=== PATIENT | female | born 1945 | race Caucasian/White ===

== ENCOUNTER 2017-09-28 01:19 | Inpatient (IN) | payer MEDICARE, BC, OTHER ==
[~2017-09-28] VITALS: Ht 154.9 cm; Wt 89.4 kg
[2017-09-28] MEDS ORDERED: HYDR25TA PO (04:57)
[2017-09-28] MEDS ORDERED: FLUT100B IH (04:57)
[2017-09-28] MEDS ORDERED: ASPI81TA59 PO (04:57)
[2017-09-28] MEDS ORDERED: INSU100I13 SQ (04:57)
[2017-09-28] MEDS ORDERED: ISOS30TA19 PO (04:57)
[2017-09-28] MEDS ORDERED: GABA-585 PO (04:57)
[2017-09-28] MEDS ORDERED: FLUT9.9S NS (04:57)
[2017-09-28] MEDS ORDERED: PROVENTIL HFA6.7 GM IH (04:57)
[2017-09-28] MEDS ORDERED: LEVO150T PO (04:57)
[2017-09-28] MEDS ORDERED: INSU100I17 SQ (04:57)
[2017-09-28] MEDS ORDERED: CARV12.5 PO (04:57)
[2017-09-28] MEDS ORDERED: CARB1TAB2 PO (04:57)
[2017-09-28] MEDS ORDERED: ATOR20TA58 PO (04:57)
[2017-09-28] MEDS ORDERED: POLY255P PO (04:58)
[2017-09-28] MEDS ORDERED: RANI150T2 PO (04:58)
[2017-09-28] MEDS ORDERED: OXYC-323 PO (04:58)
[2017-09-28] MEDS ORDERED: ROPI1TAB PO (04:58)
[2017-09-28] MEDS ORDERED: WARF-78 PO (04:58)
[2017-09-28] MEDS ORDERED: ONDA4TAB10 SL (04:58)
[2017-09-28] MEDS ORDERED: NITR0.4T22 SL (04:58)
[2017-09-28] MEDS ORDERED: RANO10002 PO (04:58)
[2017-09-28] MEDS ORDERED: PANT20TA2 PO (04:58)
[2017-09-28] MEDS ORDERED: POLYETHYLENE GLYCOL 3350 17 GM PACKET. PO PRN (06:30)
[2017-09-28] MEDS ORDERED: NITROGLYCERIN SUBLINGUAL 0.4 MG BOTTLE OF 25. SL PRN (06:30)
[2017-09-28] MEDS ORDERED: ONDANSETRON ODT 4 MG TAB.RAPDIS. PO PRN (06:30)
[2017-09-28] MEDS ORDERED: NON FORMULARY ITEM (Albuterol Sulfate (Proventil Hfa Inhaler) 1 PUFF) IH PRN (06:30)
[2017-09-28] MEDS ORDERED: oxyCODONE/APAP 5/325 1 TAB TABLET PO PRN (06:30)
[2017-09-28] MEDS ORDERED: hydrOXYzine PAMOATE 25 MG CAPSULE PO PRN (06:30)
[2017-09-28] MEDS: ONDANSETRON PF 4 MG/2 ML VIAL. IV PRN (06:38)
[2017-09-28] MEDS: PANTOPRAZOLE 40 MG TABLET.DR. PO SCH ×2 (06:38→16:34)
[2017-09-28 07:00] VITALS: BP 109/73
[2017-09-28] MEDS ORDERED: ALBUTEROL SULFATE 2.5 MG/3 ML NEBU. NEB PRN (07:00)
[2017-09-28] MEDS: LEVOTHYROXINE 150 MCG TABLET PO SCH (07:17)
[2017-09-28] MEDS: CARBIDOPA/LEVODOPA 25/100MG TABLET PO SCH ×3 (08:23→20:29)
[2017-09-28] MEDS: ASPIRIN CHEWABLE 81 MG TABLET. PO SCH (08:23)
[2017-09-28] MEDS: rOPINIRole 1 MG TABLET. PO SCH ×3 (08:23→20:30)
[2017-09-28] MEDS: RANOLAZINE 500 MG TAB.ER.12H PO SCH ×2 (08:23→20:30)
[2017-09-28] MEDS: GABAPENTIN 100 MG CAPSULE. PO SCH (08:23)
[2017-09-28] MEDS: ISOSORBIDE DINITRATE 10 MG TABLET. PO SCH ×2 (08:24→20:30)
[2017-09-28] MEDS: FLUTICASONE 50MCG/NASAL SPRAY 16GM BOTTLE. NS SCH (08:25)
[2017-09-28] MEDS: CARVEDILOL 12.5 MG TABLET. PO SCH ×2 (08:25→16:35)
[2017-09-28] MEDS ORDERED: ACETAMINOPHEN 500 MG TABLET PO PRN (08:30)
[2017-09-28] MEDS: INSULIN LISPRO 300 UNITS/3 ML INSULN.PEN. SQ SCH ×3 (08:30→16:30)
[2017-09-28] MEDS ORDERED: NON FORMULARY ITEM (Warfarin Sodium (Coumadin) 1 TAB) PO SCH (09:00)
[2017-09-28] MEDS ORDERED: C.DIFF MED SCREEN BY RX. MC ONE (09:00)
[2017-09-28] MEDS ORDERED: FLUTICASONE FUROATE 100 MCG IH SCH (09:00)
--- NOTE | 2017-09-28 09:43 | PDOC1 ---
History and Physical Date of Admission Date of Admission DATE: 09/28/17 TIME: 09:36 Identification/Chief Complaint Chief Complaint Shakiness and weakness, rather acute, brought in by concern sister Source Source: Caregiver, Chart review, Patient History of Present Illness History of Present Illness 72-year-old -[place] female, has been on dialysis for 1 year since July 2016, has an AV fistula placed September 14, 2017 on the right arm, she actually felt well 1 day prior to admission actually went shopping with her sister. When she went home and slept, tried to wake up and she could not suddenly get out of bed, shaking weak, sister needed to assist, sister got concerned and brought to the ER. Pt denies any CP, Diarrhea, abdominal pain, or pain whatsoever. She is just visiting here, she lives in [facility] and her dialysis days are usually Wednesday, but when she is here visiting her sister she gets dialyzed Wednesday at [facility], labs remarkable for a creatinine of 9.7, anion gap increase at 15 with normal bicarbonate at 22, hyperkalemia at 5.9 with no EKG changes, slight hyponatremia sodium 133. No white count, hemoglobin 10 per chest x-ray just shows PA prominence otherwise the rest of the labs okay. Patient feeling a bit better, I could not appreciate any shakiness, eating her breakfast. But has not ambulated yet. Admitted here transferred for dialysis, I' ll ask PT OT to see, I'm still waiting for home meds that otherwise can be resumed. Past medical history multiple includes cancer, COPD, DM, GERD, NE, CABG, CHF and asthma Past surgical history cardiac stents, CABG Allergies to bupropion and teriparatide Family History Family History: High Cholestrol, Hypertension Social History Smoke: No ALCOHOL: none Drugs: None Current Medications Current Medications Current Medications Pharmacy Consult (C.diff Med Screen By Rx) 1 each 1X ONCE MC ; Start 09/28/17 at 09:00; Stop 09/28/17 at 09:01; Status DC Ondansetron HCl (Zofran) 4 mg PRN Q6HRS PRN IV NAUSEA/VOMITING Last administered on 09/28/17at 06:38; Start 09/28/17 at 06:30 Aspirin (Children'S Aspirin) 81 mg DAILY PO Last administered on 09/28/17at 08: 23; Start 09/28/17 at 09:00 Atorvastatin Calcium (Lipitor) 20 mg HS PO ; Start 09/28/17 at 21:00 Carbidopa/Levodopa (Sinemet 25/100) 1 tab TID PO Last administered on at 08:23; Start 09/28/17 at 09:00 Carvedilol (Coreg) 12.5 mg BIDWMEALS PO Last administered on 09/28/17at 08:25; Start 09/28/17 at 08:00 Gabapentin (Neurontin) 100 mg DAILY PO Last administered on 09/28/17at 08:23; Start 09/28/17 at 09:00 Insulin Glargine (Lantus) 40 units QHS SQ ; Start 09/28/17 at 21:00 Nitroglycerin (Nitrostat) 0.4 mg PRN Q5MIN PRN SL CHEST PAIN; Start 09/28/17 at 06:30 Ondansetron HCl (Zofran Odt) 4 mg PRN Q8HRS PRN PO NAUSEA; Start 09/28/17 at 06 :30 Oxycodone/ Acetaminophen (Percocet 5/325) 1 tab PRN Q6HRS PRN PO PAIN; Start at 06:30 Polyethylene Glycol (miraLAX PACKET) 17 gm PRN DAILY PRN PO CONSTIPATION; Start 09/28/17 at 06:30 Non-Formulary Medication (Albuterol Sulfate (Proventil Hfa Inhaler)) 1 puff PRN Q4HRS PRN IH FOR ASTHMA; Start 09/28/17 at 06:30; Status UNV Non-Formulary Medication (Fluticasone Furoate (Arnuity Ellipta)) 100 mcg DAILY IH ; Start 09/28/17 at 09:00; Stop 09/28/17 at 09:00; Status DC Fluticasone Propionate (Flonase) 1 spray DAILY NS Last administered on at 08:25; Start 09/28/17 at 09:00 Hydroxyzine Pamoate (Vistaril) 25 mg PRN TID PRN PO ITCHING; Start 09/28/17 at 06:30 Insulin Human Lispro (HumaLOG) 7 units TIDAC SQ Last administered on 09/28/17at 08:30; Start 09/28/17 at 07:30 Isosorbide Dinitrate (Isordil) 30 mg BID PO Last administered on 09/28/17at 08: 24; Start 09/28/17 at 09:00 Levothyroxine Sodium (Synthroid) 150 mcg DAILY07 PO Last administered on at 07:17; Start 09/28/17 at 07:00 Pantoprazole Sodium (Protonix) 40 mg BIDBFRMEAL PO Last administered on at 06:38; Start 09/28/17 at 07:30 Ranolazine (Ranexa) 1,000 mg BID PO Last administered on 09/28/17 08:23; Start 09/28/17 at 09:00 Ropinirole HCl (Requip) 1 mg TID PO Last administered on 09/28/17at 08:23; Start 09/28/17 at 09:00 Non-Formulary Medication (Warfarin Sodium (Coumadin)) 1 tab DAILY PO ; Start at 09:00; Stop 09/28/17 at 09:00; Status DC Albuterol Sulfate (Ventolin Neb Soln) 2.5 mg PRN Q4HRS PRN NEB SHORTNESS OF BREATH; Start 09/28/17 at 07:00 Budesonide (Pulmicort) 0.5 mg RTBID NEB ; Start 09/28/17 at 08:00 Warfarin Sodium (Coumadin Per Pharmacy) 1 each PRN DAILY PRN MC SEE COMMENTS; Start 09/28/17 at 07:15 Acetaminophen (Tylenol) 500 mg PRN Q6HRS PRN PO MILD PAIN / TEMP; Start at 08:30 Active Scripts Active Reported Coumadin (Warfarin Sodium) 5 Mg Tablet 1 Tab PO DAILY Requip (Ropinirole Hcl) 1 Mg Tablet 1 Mg PO TID Ranexa (Ranolazine) 1,000 Mg Tab.er.12h 1 Tab PO BID Ranitidine Hcl 150 Mg Tablet 150 Mg PO DAILY Polyethylene Glycol 3350 255 Gm Powder 17 Gm PO DAILY PRN Protonix (Pantoprazole Sodium) 20 Mg Tablet.dr 40 Mg PO BID Percocet 5-325 Mg Tablet (Oxycodone/Acetaminophen) 1 Each Tablet 1 Tab PO PRN Q6HRS PRN Zofran Odt (Ondansetron) 4 Mg Tab.rapdis 1 Tab SL Q8HRS NITROGLYCERIN SubLingual (Nitroglycerin) 0.4 Mg Tab.subl 0.4 Mg SL PRN Q5MIN PRN Synthroid (Levothyroxine Sodium) 150 Mcg Tablet 1 Tab PO DAILY Isosorbide Dinitrate 30 Mg Tablet 30 Mg PO BID Lantus Solostar (Insulin Glargine,Hum.rec.anlog) 100 Unit/1 Ml Insuln.pen 40 Unit SQ QHS Novolog Flexpen (Insulin Aspart) 100 Unit/1 Ml Insuln.pen 7 Unit SQ TIDAC Hydroxyzine Hcl 25 Mg Tablet 1 Tab PO TID PRN Gabapentin 100 Mg Capsule 100 Mg PO DAILY Flonase Allergy Relief (Fluticasone Propionate) 9.9 Ml Jackson.susp 1 Sprays NS DAILY Arnuity Ellipta (Fluticasone Furoate) 100 Mcg Blst.w.dev 100 Mcg IH DAILY Coreg (Carvedilol) 12.5 Mg Tablet 1 Tab PO BID Sinemet 25-100 Mg Tablet (Carbidopa/Levodopa) 1 Each Tablet 1 Tab PO TID Atorvastatin Calcium 20 Mg Tablet 1 Tab PO DAILY Children's Aspirin (Aspirin) 81 Mg Tab.chew 81 Mg PO DAILY Proventil Hfa Inhaler (Albuterol Sulfate) 6.7 Gm Hfa.aer.ad 1 Puff IH PRN Q4HRS PRN Allergies Allergies: Coded Allergies: bupropion (Verified Adverse Reaction, Severe, Nausea, 09/28/17) teriparatide (Verified Adverse Reaction, Severe, Nausea and Vomiting, 09/28) ROS Review of System as per history of present illness, the rest of 14 point systems reviewed negative Physical Exam General: Alert, Oriented X3, Cooperative, No acute distress HEENT: Atraumatic, PERRLA, EOMI Lungs: Clear to auscultation, Normal air movement Heart: S1S2, RRR, no thrills, no rubs, no gallops, no murmurs Cardiovascular: S1, S2 Breasts: Normal, Rt breast nml w/o mass, Lt breast nml w/o mass, Nipples normal Abdomen: Normal bowel sounds, Soft, No tenderness, No hepatosplenomegaly, No masses Extremities: No clubbing, No cyanosis, No edema, Normal pulses, No tenderness/ swelling Skin: No rashes, No breakdown, No significant lesion Neuro: Normal gait, Normal speech, Strength at 5/5 X4 ext, Normal tone, Sensation intact, Cranial nerves 3-12 NL, Reflexes 2+ Psych/Mental Status: Mental status NL, Mood NL Vitals Vitals Vital Signs Date Time Temp Pulse Resp B/P (MAP) Pulse Ox O2 Delivery O2 Flow Rate FiO2 09/28/17 08:25 69 109/73 09/28/17 07:00 97.0 20 100 Nasal Cannula 2.0 97.0 Labs Labs Laboratory Tests Test 09/28/17 03:19 09/28/17 07:38 Glucose (Fingerstick) 143 mg/dL (70-99) 160 mg/dL (70-99) Laboratory Tests Test 09/28/17 03:19 09/28/17 07:38 Glucose (Fingerstick) 143 mg/dL (70-99) 160 mg/dL (70-99) VTE Prophylaxis Ordered VTE Prophylaxis Devices: Yes VTE Pharmacological Prophylaxi: Yes Assessment/Plan Assessment/Plan ESRD on dialysis, usual days are Wednesday at home in [facility] But if she is visiting her sister here, she gets dialyzed at [place] Wednesday-last dialysis was Wednesday, 4 days ago hyperkalemia with no EKG changes Mild hyponatremia Elevated anion gap with normal bicarbonate Anemia of ESRD Hypertension, COPD, CVA, diabetes type 2, CHF, GERD, all chronic stable Plan: Admit, dialyzed today, renal consult, awaiting home meds, PT OT, supportive care Discussed with her Other questions I have attempted to answer for her HUNG YEBOAH MD Sep 28, 2017 09:43
[2017-09-28 10:08] LABS: BASO # 0.1 x10^3/uL (0.0-0.2); BASO % 1 % (0-3); EOS # 0.5 x10^3/uL (0.0-0.7); EOS % 6 % (0-3); HEMATOCRIT 29.4 % (36.0-47.0); HEMOGLOBIN 9.7 g/dL (12.0-15.5); LYMPH # 2.3 x10^3/uL (1.0-4.8); LYMPH % 25 % (24-48); MEAN CORPUSCULAR HEMOGLOBIN 31 pg (25-35); MEAN CORPUSCULAR HGB CONC 33 g/dL (31-37); MEAN CORPUSCULAR VOLUME 95 fL (79-100); MONO # 0.6 x10^3/uL (0.0-1.1); MONO % 7 % (0-9); NEUT # 5.5 x10^3uL (1.8-7.7); NEUT % 61 % (31-73); PLATELET COUNT 182 x10^3/uL (140-400); RED BLOOD COUNT 3.09 x10^6/uL (3.50-5.40); RED CELL DISTRIBUTION WIDTH 19.2 % (11.5-14.5)
[2017-09-28 10:27] LABS: CALCIUM 9.2 mg/dL (8.5-10.1); CREATININE 9.9 mg/dL (0.6-1.0); GFR 3.9
[2017-09-28 10:29] LABS: POTASSIUM 4.6 mmol/L (3.5-5.1)
[2017-09-28 10:39] LABS: PROTHROMBIN TIME PATIENT 43.3 SEC (11.7-14.0)
[2017-09-28] MEDS: BUDESONIDE 0.5 MG/2 ML NEBU. NEB SCH ×2 (11:16→19:01)
[2017-09-28 11:41] VITALS: BP 85/64
[2017-09-28] MEDS ORDERED: IV NORMAL SALINE 1000ML BAG 1,000 ML IV PRN ×2 (11:42)
[2017-09-28] MEDS ORDERED: DIALYSIS PATIENT. MC PRN ×2 (11:45)
--- NOTE | 2017-09-28 12:01 | PDOC2 ---
CONSULT Date of Consult Date of Consult DATE: 09/28/17 TIME: 11:54 Reason for Consult Reason for Consult: ESRD Referring Physician Referring Physician: POLY Identification/Chief Complaint Chief Complaint WEAKNESS Source Source: Chart review, Patient History of Present Illness Reason for Visit: THIS IS A 72 YR OLD ON HD FOR ABOUT A YEAR. ESRD DUE TO DM II AND HTN. HAS BEEN GETTING HER TX IN [facility] BUT RECENTLY MOVED TO [facility] WHERE SHE GETS HER TX ON TTS. SHE IS NOTED TO HAVE WEAKNESS AND CHILLS AND COULD HARDLY GET OUT OF BED AND THIS PRECIPITATED THE ADMISSION. NO OTHER HX. LABS ARE C/ W ESRD. SOME HYPOTENSION NOTED BUT ONLY ON COREG Past Medical History Cardiovascular: CHF, HTN GI: Constipation Heme/Onc: Anemia NOS Musculoskeletal: Weakness Rheumatologic: No pertinent hx Infectious disease: No pertinent hx ENT: No pertinent hx Renal/: Chronic renal failure Endocrine: Diabetes, Hyperparathyroidism Past Surgical History Past Surgical History RIGHT IJ TDC AND RIGHT ARM AVF Family History Family History: High Cholestrol, Hypertension Social History No ALCOHOL: none Drugs: None Current Medications Current Medications Current Medications Pharmacy Consult (C.diff Med Screen By Rx) 1 each 1X ONCE [facility] ; Start 09/28/17 at 09:00; Stop 09/28/17 at 09:01; Status DC Ondansetron HCl (Zofran) 4 mg PRN Q6HRS PRN IV NAUSEA/VOMITING Last administered on 09/28/17at 06:38; Start 09/28/17 at 06:30 Aspirin (Children'S Aspirin) 81 mg DAILY PO Last administered on 09/28/17at 08: 23; Start 09/28/17 at 09:00 Atorvastatin Calcium (Lipitor) 20 mg HS PO ; Start 09/28/17 at 21:00 Carbidopa/Levodopa (Sinemet 25/100) 1 tab TID PO Last administered on at 08:23; Start 09/28/17 at 09:00 Carvedilol (Coreg) 12.5 mg BIDWMEALS PO Last administered on 09/28/17at 08:25; Start 09/28/17 at 08:00 Gabapentin (Neurontin) 100 mg DAILY PO Last administered on 09/28/17at 08:23; Start 09/28/17 at 09:00 Insulin Glargine (Lantus) 40 units QHS SQ ; Start 09/28/17 at 21:00 Nitroglycerin (Nitrostat) 0.4 mg PRN Q5MIN PRN SL CHEST PAIN; Start 09/28/17 at 06:30 Ondansetron HCl (Zofran Odt) 4 mg PRN Q8HRS PRN PO NAUSEA; Start 09/28/17 at 06 :30 Oxycodone/ Acetaminophen (Percocet 5/325) 1 tab PRN Q6HRS PRN PO PAIN; Start at 06:30 Polyethylene Glycol (miraLAX PACKET) 17 gm PRN DAILY PRN PO CONSTIPATION; Start 09/28/17 at 06:30 Non-Formulary Medication (Albuterol Sulfate (Proventil Hfa Inhaler)) 1 puff PRN Q4HRS PRN IH FOR ASTHMA; Start 09/28/17 at 06:30; Status UNV Non-Formulary Medication (Fluticasone Furoate (Arnuity Ellipta)) 100 mcg DAILY IH ; Start 09/28/17 at 09:00; Stop 09/28/17 at 09:00; Status DC Fluticasone Propionate (Flonase) 1 spray DAILY NS Last administered on at 08:25; Start 09/28/17 at 09:00 Hydroxyzine Pamoate (Vistaril) 25 mg PRN TID PRN PO ITCHING; Start 09/28/17 at 06:30 Insulin Human Lispro (HumaLOG) 7 units TIDAC SQ Last administered on 09/28/17at 08:30; Start 09/28/17 at 07:30 Isosorbide Dinitrate (Isordil) 30 mg BID PO Last administered on 09/28/17at 08: 24; Start 09/28/17 at 09:00 Levothyroxine Sodium (Synthroid) 150 mcg DAILY07 PO Last administered on at 07:17; Start 09/28/17 at 07:00 Pantoprazole Sodium (Protonix) 40 mg BIDBFRMEAL PO Last administered on at 06:38; Start 09/28/17 at 07:30 Ranolazine (Ranexa) 1,000 mg BID PO Last administered on 09/28/17at 08:23; Start 09/28/17 at 09:00 Ropinirole HCl (Requip) 1 mg TID PO Last administered on 09/28/17at 08:23; Start 09/28/17 at 09:00 Non-Formulary Medication (Warfarin Sodium (Coumadin)) 1 tab DAILY PO ; Start at 09:00; Stop 09/28/17 at 09:00; Status DC Albuterol Sulfate (Ventolin Neb Soln) 2.5 mg PRN Q4HRS PRN NEB SHORTNESS OF BREATH; Start 09/28/17 at 07:00 Budesonide (Pulmicort) 0.5 mg RTBID NEB Last administered on 09/28/17at 11:16; Start 09/28/17 at 08:00 Warfarin Sodium (Coumadin Per Pharmacy) 1 each PRN DAILY PRN MC SEE COMMENTS; Start 09/28/17 at 07:15 Acetaminophen (Tylenol) 500 mg PRN Q6HRS PRN PO MILD PAIN / TEMP; Start at 08:30 Sodium Chloride 1,000 ml @ 1,000 mls/hr Q1H PRN IV hypotension; Start 09/28/17 at 11:42; Stop 09/28/17 at 17:41 Sodium Chloride 1,000 ml @ 400 mls/hr Q2H30M PRN IV PATENCY; Start 09/28/17 at 11:42; Stop 09/28/17 at 23:41 Info (PHARMACY MONITORING -- do not chart) 1 each PRN DAILY PRN MC SEE COMMENTS ; Start 09/28/17 at 11:45; Status UNV Info (PHARMACY MONITORING -- do not chart) 1 each PRN DAILY PRN MC SEE COMMENTS ; Start 09/28/17 at 11:45 Active Scripts Active Reported Coumadin (Warfarin Sodium) 5 Mg Tablet 1 Tab PO DAILY Requip (Ropinirole Hcl) 1 Mg Tablet 1 Mg PO TID Ranexa (Ranolazine) 1,000 Mg Tab.er.12h 1 Tab PO BID Ranitidine Hcl 150 Mg Tablet 150 Mg PO DAILY Polyethylene Glycol 3350 255 Gm Powder 17 Gm PO DAILY PRN Protonix (Pantoprazole Sodium) 20 Mg Tablet.dr 40 Mg PO BID Percocet 5-325 Mg Tablet (Oxycodone/Acetaminophen) 1 Each Tablet 1 Tab PO PRN Q6HRS PRN Zofran Odt (Ondansetron) 4 Mg Tab.rapdis 1 Tab SL Q8HRS NITROGLYCERIN SubLingual (Nitroglycerin) 0.4 Mg Tab.subl 0.4 Mg SL PRN Q5MIN PRN Synthroid (Levothyroxine Sodium) 150 Mcg Tablet 1 Tab PO DAILY Isosorbide Dinitrate 30 Mg Tablet 30 Mg PO BID Lantus Solostar (Insulin Glargine,Hum.rec.anlog) 100 Unit/1 Ml Insuln.pen 40 Unit SQ QHS Novolog Flexpen (Insulin Aspart) 100 Unit/1 Ml Insuln.pen 7 Unit SQ TIDAC Hydroxyzine Hcl 25 Mg Tablet 1 Tab PO TID PRN Gabapentin 100 Mg Capsule 100 Mg PO DAILY Flonase Allergy Relief (Fluticasone Propionate) 9.9 Ml Lockhart.susp 1 Sprays NS DAILY Arnuity Ellipta (Fluticasone Furoate) 100 Mcg Blst.w.dev 100 Mcg IH DAILY Coreg (Carvedilol) 12.5 Mg Tablet 1 Tab PO BID Sinemet 25-100 Mg Tablet (Carbidopa/Levodopa) 1 Each Tablet 1 Tab PO TID Atorvastatin Calcium 20 Mg Tablet 1 Tab PO DAILY Children's Aspirin (Aspirin) 81 Mg Tab.chew 81 Mg PO DAILY Proventil Hfa Inhaler (Albuterol Sulfate) 6.7 Gm Hfa.aer.ad 1 Puff IH PRN Q4HRS PRN Allergies Allergies: Coded Allergies: bupropion (Verified Adverse Reaction, Severe, Nausea, 09/28/17) teriparatide (Verified Adverse Reaction, Severe, Nausea and Vomiting, 09/28) ROS General: YES: Fatigue, Appetite PSYCHOLOGICAL ROS: YES: Anxiety Eyes: Yes Decreased vision ALLERGY AND IMMUNOLOGY: YES: Seasonal Allergies Respiratory: YES: Cough, Shortness of breath Gastrointestinal: Yes Constipation Genitourinary: YES Other (ANURIA) Musculoskeletal: Yes Muscular Weakness Neurological: Yes Weakness Physical Exam General: Alert, Oriented X3, Cooperative, No acute distress HEENT: Atraumatic, PERRLA, EOMI Lungs: Clear to auscultation Heart: Regular rate Abdomen: Normal bowel sounds, Soft, No tenderness Skin: No breakdown Neuro: Sensation intact Psych/Mental Status: Mental status NL, Mood NL MUSCULOSKELETAL: No joint tenderness, No deformity, Other (RIGHT ARM AVF HAS A THRILL AND BRUIT) Vitals VITALS Vital Signs Date Time Temp Pulse Resp B/P (MAP) Pulse Ox O2 Delivery O2 Flow Rate FiO2 09/28/17 11:41 96.6 71 20 85/64 (71) 98 Room Air 96.6 09/28/17 11:19 2.0 Labs Labs Laboratory Tests Test 09/28/17 03:19 09/28/17 07:38 09/28/17 09:10 Glucose (Fingerstick) 143 mg/dL (70-99) 160 mg/dL (70-99) White Blood Count 9.0 x10^3/uL (4.0-11.0) Red Blood Count 3.09 x10^6/uL (3.50-5.40) Hemoglobin 9.7 g/dL (12.0-15.5) Hematocrit 29.4 % (36.0-47.0) Mean Corpuscular Volume 95 fL (79-100) Mean Corpuscular Hemoglobin 31 pg (25-35) Mean Corpuscular Hemoglobin Concent 33 g/dL (31-37) Red Cell Distribution Width 19.2 % (11.5-14.5) Platelet Count 182 x10^3/uL (140-400) Neutrophils (%) (Auto) 61 % (31-73) Lymphocytes (%) (Auto) 25 % (24-48) Monocytes (%) (Auto) 7 % (0-9) Eosinophils (%) (Auto) 6 % (0-3) Basophils (%) (Auto) 1 % (0-3) Neutrophils # (Auto) 5.5 x10^3uL (1.8-7.7) Lymphocytes # (Auto) 2.3 x10^3/uL (1.0-4.8) Monocytes # (Auto) 0.6 x10^3/uL (0.0-1.1) Eosinophils # (Auto) 0.5 x10^3/uL (0.0-0.7) Basophils # (Auto) 0.1 x10^3/uL (0.0-0.2) Prothrombin Time 43.3 SEC (11.7-14.0) Prothromb Time International Ratio 4.7 (0.8-1.1) Sodium Level 130 mmol/L (136-145) Potassium Level 4.6 mmol/L (3.5-5.1) Chloride Level 95 mmol/L (98-107) Carbon Dioxide Level 22 mmol/L (21-32) Anion Gap 13 (6-14) Blood Urea Nitrogen 76 mg/dL (7-20) Creatinine 9.9 mg/dL (0.6-1.0) Estimated GFR (Cockcroft-Gault) 3.9 Glucose Level 147 mg/dL (70-99) Calcium Level 9.2 mg/dL (8.5-10.1) Laboratory Tests Test 09/28/17 03:19 09/28/17 07:38 09/28/17 09:10 Glucose (Fingerstick) 143 mg/dL (70-99) 160 mg/dL (70-99) White Blood Count 9.0 x10^3/uL (4.0-11.0) Red Blood Count 3.09 x10^6/uL (3.50-5.40) Hemoglobin 9.7 g/dL (12.0-15.5) Hematocrit 29.4 % (36.0-47.0) Mean Corpuscular Volume 95 fL (79-100) Mean Corpuscular Hemoglobin 31 pg (25-35) Mean Corpuscular Hemoglobin Concent 33 g/dL (31-37) Red Cell Distribution Width 19.2 % (11.5-14.5) Platelet Count 182 x10^3/uL (140-400) Neutrophils (%) (Auto) 61 % (31-73) Lymphocytes (%) (Auto) 25 % (24-48) Monocytes (%) (Auto) 7 % (0-9) Eosinophils (%) (Auto) 6 % (0-3) Basophils (%) (Auto) 1 % (0-3) Neutrophils # (Auto) 5.5 x10^3uL (1.8-7.7) Lymphocytes # (Auto) 2.3 x10^3/uL (1.0-4.8) Monocytes # (Auto) 0.6 x10^3/uL (0.0-1.1) Eosinophils # (Auto) 0.5 x10^3/uL (0.0-0.7) Basophils # (Auto) 0.1 x10^3/uL (0.0-0.2) Prothrombin Time 43.3 SEC (11.7-14.0) Prothromb Time International Ratio 4.7 (0.8-1.1) Sodium Level 130 mmol/L (136-145) Potassium Level 4.6 mmol/L (3.5-5.1) Chloride Level 95 mmol/L (98-107) Carbon Dioxide Level 22 mmol/L (21-32) Anion Gap 13 (6-14) Blood Urea Nitrogen 76 mg/dL (7-20) Creatinine 9.9 mg/dL (0.6-1.0) Estimated GFR (Cockcroft-Gault) 3.9 Glucose Level 147 mg/dL (70-99) Calcium Level 9.2 mg/dL (8.5-10.1) Assessment/Plan Assessment/Plan IMP ESRD DM II HTN ANEMIA WEAKNESS S/P RIGHT ARM BRACHIO BASILIC AVF CREATION RECENTLY HYPOTENSION PLAN HD TODAY VIA RIGHT IJ TUNNELED HD CATHETER UF TO DW RAJINDER MAY NEED MIDODRINE FOR AUTONOMIC DYSFUNCTION WILL FOLLOW CLIFTON CORTES MD Sep 28, 2017 12:01
[2017-09-28 19:00] VITALS: BP 107/52
[2017-09-28] MEDS ORDERED: DARBEPOETIN ALFA 60 MCG/0.3 ML DISP.SYRIN. SQ SCH (21:00)
[2017-09-28] MEDS ORDERED: ATORVASTATIN CALCIUM 20 MG TABLET PO SCH (21:00)
[2017-09-28] MEDS ORDERED: INSULIN GLARGINE 300 UNITS/3 ML INSULN.PEN. SQ SCH (21:00)
[2017-09-28 23:00] VITALS: BP 95/53
[2017-09-29] MEDS: ONDANSETRON PF 4 MG/2 ML VIAL. IV PRN ×2 (02:38→09:25)
[2017-09-29 03:00] VITALS: BP 107/67
[2017-09-29 04:31] LABS: BASO # 0.1 x10^3/uL (0.0-0.2); BASO % 1 % (0-3); EOS # 0.5 x10^3/uL (0.0-0.7); EOS % 6 % (0-3); HEMATOCRIT 28.4 % (36.0-47.0); HEMOGLOBIN 9.8 g/dL (12.0-15.5); LYMPH # 2.2 x10^3/uL (1.0-4.8); LYMPH % 23 % (24-48); MEAN CORPUSCULAR HEMOGLOBIN 32 pg (25-35); MEAN CORPUSCULAR HGB CONC 34 g/dL (31-37); MEAN CORPUSCULAR VOLUME 94 fL (79-100); MONO # 0.7 x10^3/uL (0.0-1.1); MONO % 8 % (0-9); NEUT # 6.1 x10^3uL (1.8-7.7); NEUT % 63 % (31-73); PLATELET COUNT 198 x10^3/uL (140-400); RED BLOOD COUNT 3.02 x10^6/uL (3.50-5.40); RED CELL DISTRIBUTION WIDTH 18.7 % (11.5-14.5); WHITE BLOOD COUNT 9.6 x10^3/uL (4.0-11.0)
[2017-09-29 04:46] LABS: CALCIUM 8.6 mg/dL (8.5-10.1); CREATININE 5.7 mg/dL (0.6-1.0); GFR 7.4; POTASSIUM 4.6 mmol/L (3.5-5.1)
[2017-09-29 04:55] LABS: PROTHROMBIN TIME PATIENT 39.8 SEC (11.7-14.0)
[2017-09-29] MEDS: PANTOPRAZOLE 40 MG TABLET.DR. PO SCH ×2 (06:30→17:42)
[2017-09-29] MEDS: LEVOTHYROXINE 150 MCG TABLET PO SCH (06:30)
[2017-09-29 07:00] VITALS: BP 99/32
[2017-09-29] MEDS: INSULIN LISPRO 300 UNITS/3 ML INSULN.PEN. SQ SCH ×3 (07:30→18:03)
[2017-09-29] MEDS: BUDESONIDE 0.5 MG/2 ML NEBU. NEB SCH (07:54)
[2017-09-29] MEDS: rOPINIRole 1 MG TABLET. PO SCH ×2 (08:06→14:01)
[2017-09-29] MEDS: ASPIRIN CHEWABLE 81 MG TABLET. PO SCH (08:06)
[2017-09-29] MEDS: GABAPENTIN 100 MG CAPSULE. PO SCH (08:06)
[2017-09-29] MEDS: CARBIDOPA/LEVODOPA 25/100MG TABLET PO SCH ×2 (08:06→14:01)
[2017-09-29] MEDS: FLUTICASONE 50MCG/NASAL SPRAY 16GM BOTTLE. NS SCH (08:08)
[2017-09-29] MEDS: CARVEDILOL 12.5 MG TABLET. PO SCH ×2 (08:08→17:00)
[2017-09-29] MEDS: ISOSORBIDE DINITRATE 10 MG TABLET. PO SCH (08:08)
[2017-09-29] MEDS: RANOLAZINE 500 MG TAB.ER.12H PO SCH (09:26)
[2017-09-29 11:00] VITALS: BP 95/63
--- NOTE | 2017-09-29 11:42 | PDOC3 ---
Discharge Summary Visit Information Date of Admission: Sep 28, 2017 Date of Discharge: Sep 29, 2017 Admitting Diagnosis Comment: ESRD on dialysis, usual days are Wednesday at home in [facility] But if she is visiting her sister here, she gets dialyzed at [place] Wednesday-last dialysis was Wednesday, 4 days ago hyperkalemia with no EKG changes Mild hyponatremia Elevated anion gap with normal bicarbonate Anemia of ESRD Hypertension, COPD, CVA, diabetes type 2, CHF, GERD, all chronic stable Brief Hospital Course Allergies Allergies Coded Allergies Type Severity Reaction Last Updated Verified bupropion Adverse Reaction Severe Nausea 09/28/17 Yes teriparatide Adverse Reaction Severe Nausea and Vomiting 09/28/17 Yes Vital Signs Vital Signs Date Time Temp Pulse Resp B/P (MAP) Pulse Ox O2 Delivery O2 Flow Rate FiO2 09/29/17 09:26 74 131/60 09/29/17 08:00 Nasal Cannula 2.0 09/29/17 07:56 99 09/29/17 07:00 97.6 20 97.6 Lab Results Laboratory Tests Test 09/28/17 03:19 09/28/17 07:38 09/28/17 09:10 09/28/17 12:06 Glucose (Fingerstick) 143 mg/dL (70-99) 160 mg/dL (70-99) 150 mg/dL (70-99) White Blood Count 9.0 x10^3/uL (4.0-11.0) Red Blood Count 3.09 x10^6/uL (3.50-5.40) Hemoglobin 9.7 g/dL (12.0-15.5) Hematocrit 29.4 % (36.0-47.0) Mean Corpuscular Volume 95 fL (79-100) Mean Corpuscular Hemoglobin 31 pg (25-35) Mean Corpuscular Hemoglobin Concent 33 g/dL (31-37) Red Cell Distribution Width 19.2 % (11.5-14.5) Platelet Count 182 x10^3/uL (140-400) Neutrophils (%) (Auto) 61 % (31-73) Lymphocytes (%) (Auto) 25 % (24-48) Monocytes (%) (Auto) 7 % (0-9) Eosinophils (%) (Auto) 6 % (0-3) Basophils (%) (Auto) 1 % (0-3) Neutrophils # (Auto) 5.5 x10^3uL (1.8-7.7) Lymphocytes # (Auto) 2.3 x10^3/uL (1.0-4.8) Monocytes # (Auto) 0.6 x10^3/uL (0.0-1.1) Eosinophils # (Auto) 0.5 x10^3/uL (0.0-0.7) Basophils # (Auto) 0.1 x10^3/uL (0.0-0.2) Prothrombin Time 43.3 SEC (11.7-14.0) Prothromb Time International Ratio 4.7 (0.8-1.1) Sodium Level 130 mmol/L (136-145) Potassium Level 4.6 mmol/L (3.5-5.1) Chloride Level 95 mmol/L (98-107) Carbon Dioxide Level 22 mmol/L (21-32) Anion Gap 13 (6-14) Blood Urea Nitrogen 76 mg/dL (7-20) Creatinine 9.9 mg/dL (0.6-1.0) Estimated GFR (Cockcroft-Gault) 3.9 Glucose Level 147 mg/dL (70-99) Calcium Level 9.2 mg/dL (8.5-10.1) Test 09/28/17 16:26 09/28/17 20:21 09/29/17 02:42 09/29/17 03:40 Glucose (Fingerstick) 98 mg/dL (70-99) 183 mg/dL (70-99) 100 mg/dL (70-99) White Blood Count 9.6 x10^3/uL (4.0-11.0) Red Blood Count 3.02 x10^6/uL (3.50-5.40) Hemoglobin 9.8 g/dL (12.0-15.5) Hematocrit 28.4 % (36.0-47.0) Mean Corpuscular Volume 94 fL (79-100) Mean Corpuscular Hemoglobin 32 pg (25-35) Mean Corpuscular Hemoglobin Concent 34 g/dL (31-37) Red Cell Distribution Width 18.7 % (11.5-14.5) Platelet Count 198 x10^3/uL (140-400) Neutrophils (%) (Auto) 63 % (31-73) Lymphocytes (%) (Auto) 23 % (24-48) Monocytes (%) (Auto) 8 % (0-9) Eosinophils (%) (Auto) 6 % (0-3) Basophils (%) (Auto) 1 % (0-3) Neutrophils # (Auto) 6.1 x10^3uL (1.8-7.7) Lymphocytes # (Auto) 2.2 x10^3/uL (1.0-4.8) Monocytes # (Auto) 0.7 x10^3/uL (0.0-1.1) Eosinophils # (Auto) 0.5 x10^3/uL (0.0-0.7) Basophils # (Auto) 0.1 x10^3/uL (0.0-0.2) Prothrombin Time 39.8 SEC (11.7-14.0) Prothromb Time International Ratio 4.2 (0.8-1.1) Sodium Level 133 mmol/L (136-145) Potassium Level 4.6 mmol/L (3.5-5.1) Chloride Level 97 mmol/L (98-107) Carbon Dioxide Level 26 mmol/L (21-32) Anion Gap 10 (6-14) Blood Urea Nitrogen 27 mg/dL (7-20) Creatinine 5.7 mg/dL (0.6-1.0) Estimated GFR (Cockcroft-Gault) 7.4 Glucose Level 82 mg/dL (70-99) Calcium Level 8.6 mg/dL (8.5-10.1) Test 09/29/17 07:45 Glucose (Fingerstick) 86 mg/dL (70-99) Laboratory Tests Test 09/28/17 12:06 09/28/17 16:26 09/28/17 20:21 09/29/17 02:42 Glucose (Fingerstick) 150 mg/dL (70-99) 98 mg/dL (70-99) 183 mg/dL (70-99) 100 mg/dL (70-99) Test 09/29/17 03:40 09/29/17 07:45 White Blood Count 9.6 x10^3/uL (4.0-11.0) Red Blood Count 3.02 x10^6/uL (3.50-5.40) Hemoglobin 9.8 g/dL (12.0-15.5) Hematocrit 28.4 % (36.0-47.0) Mean Corpuscular Volume 94 fL (79-100) Mean Corpuscular Hemoglobin 32 pg (25-35) Mean Corpuscular Hemoglobin Concent 34 g/dL (31-37) Red Cell Distribution Width 18.7 % (11.5-14.5) Platelet Count 198 x10^3/uL (140-400) Neutrophils (%) (Auto) 63 % (31-73) Lymphocytes (%) (Auto) 23 % (24-48) Monocytes (%) (Auto) 8 % (0-9) Eosinophils (%) (Auto) 6 % (0-3) Basophils (%) (Auto) 1 % (0-3) Neutrophils # (Auto) 6.1 x10^3uL (1.8-7.7) Lymphocytes # (Auto) 2.2 x10^3/uL (1.0-4.8) Monocytes # (Auto) 0.7 x10^3/uL (0.0-1.1) Eosinophils # (Auto) 0.5 x10^3/uL (0.0-0.7) Basophils # (Auto) 0.1 x10^3/uL (0.0-0.2) Prothrombin Time 39.8 SEC (11.7-14.0) Prothromb Time International Ratio 4.2 (0.8-1.1) Sodium Level 133 mmol/L (136-145) Potassium Level 4.6 mmol/L (3.5-5.1) Chloride Level 97 mmol/L (98-107) Carbon Dioxide Level 26 mmol/L (21-32) Anion Gap 10 (6-14) Blood Urea Nitrogen 27 mg/dL (7-20) Creatinine 5.7 mg/dL (0.6-1.0) Estimated GFR (Cockcroft-Gault) 7.4 Glucose Level 82 mg/dL (70-99) Calcium Level 8.6 mg/dL (8.5-10.1) Glucose (Fingerstick) 86 mg/dL (70-99) Brief Hospital Course Ms. Rosen is a 72 old AA femal on HD, who presented with [ ]shaking, almost fell and could not get out of bed. SHe went shopping earlier with sister and was feeling fine, Workup is negative except for ESRD numbers. She almost missed about 3 or 4 sessions of dialysis because she is just visiting from [facility] her schedule there is Wed, Wednesday, but when she is here she is Wednesday c/o [place]. Her last dialysis was Wednesday, she came on a Wednesday. She got dialyzed. Her creatinine better from 9 down to 5. Normal bicarbonate. She had hyperkalemia with no EKG changes and that is better after first session of dialysis. Cleared from renal to go. PT recommends home health we have arranged for that. No change in meds To go for dialysis tomorrow as her schedule in [place] Consults performed renal Discharge Information Condition at Discharge: Improved, Stable Disposition/Orders: D/C to Home w/ HH Scheduled Aspirin (Children's Aspirin) 81 Mg Tab.chew, 81 MG PO DAILY, (Reported) Entered as Reported by: PRINCESS BARBER on 09/28/17456 Last Action: Continued on 09/28/17624 by PRINCESS BARBER Atorvastatin Calcium (Atorvastatin Calcium) 20 Mg Tablet, 1 TAB PO DAILY, #30 Ref 5 (Reported) Entered as Reported by: PRINCESS BARBER on 09/28/17456 Last Action: Continued on 09/28/17624 by PRINCESS BARBER Carbidopa/Levodopa (Sinemet 25-100 Mg Tablet) 1 Each Tablet, 1 TAB PO TID, ( Reported) Entered as Reported by: PRINCESS BARBER on 09/28/17456 Last Action: Continued on 09/28/17624 by PRINCESS BARBER Carvedilol (Coreg) 12.5 Mg Tablet, 1 TAB PO BID, #180 Ref 1 (Reported) Entered as Reported by: PRINCESS BARBER on 09/28/17456 Last Action: Continued on 09/28/17624 by PRINCESS BARBER Fluticasone Furoate (Arnuity Ellipta) 100 Mcg Blst.w.dev, 100 MCG IH DAILY, ( Reported) Entered as Reported by: PRINCESS BARBER on 09/28/17456 Last Action: Converted on 09/28/17624 by PRINCESS BARBER Fluticasone Propionate (Flonase Allergy Relief) 9.9 Ml [place].susp, 1 SPRAYS NS DAILY, (Reported) Entered as Reported by: PRINCESS BARBER on 09/28/17456 Last Action: Converted on 09/28/17624 by PRINCESS BARBER Gabapentin (Gabapentin) 100 Mg Capsule, 100 MG PO DAILY, (Reported) Entered as Reported by: PRINCESS BARBER on 09/28/17456 Last Action: Continued on 09/28/17624 by PRINCESS BARBER Insulin Aspart (Novolog Flexpen) 100 Unit/1 Ml Insuln.pen, 7 UNIT SQ TIDAC, ( Reported) Entered as Reported by: PRINCESS BARBER on 09/28/17456 Last Action: Converted on 09/28/17624 by PRINCESS BARBER Insulin Glargine,Hum.rec.anlog (Lantus Solostar) 100 Unit/1 Ml Insuln.pen, 40 UNIT SQ QHS, #15 Ref 3 (Reported) Entered as Reported by: PRINCESS BARBER on 09/28/17456 Last Action: Continued on 09/28/17624 by PRINCESS BARBER Isosorbide Dinitrate (Isosorbide Dinitrate) 30 Mg Tablet, 30 MG PO BID, ( Reported) Entered as Reported by: PRINCESS BARBER on 09/28/17456 Last Action: Converted on 09/28/17624 by PRINCESS BARBER Levothyroxine Sodium (Synthroid) 150 Mcg Tablet, 1 TAB PO DAILY, #30 Ref 5 ( Reported) Entered as Reported by: PRINCESS BARBER on 09/28/17456 Last Action: Converted on 09/28/17624 by PRINCESS BARBER Ondansetron (Zofran Odt) 4 Mg Tab.rapdis, 1 TAB SL Q8HRS, #15 (Reported) Entered as Reported by: PRINCESS BARBER on 09/28/17457 Last Action: Continued on 09/28/17624 by PRINCESS BARBER Pantoprazole Sodium (Protonix) 20 Mg Tablet.dr, 40 MG PO BID, (Reported) Entered as Reported by: PRINCESS BARBER on 09/28/17457 Last Action: Converted on 09/28/17624 by PRINCESS BARBER Ranitidine Hcl (Ranitidine Hcl) 150 Mg Tablet, 150 MG PO DAILY, (Reported) Entered as Reported by: PRINCESS BARBER on 09/28/17457 Last Action: New Order on 09/28/17457 by PRINCESS BARBER Ranolazine (Ranexa) 1,000 Mg Tab.er.12h, 1 TAB PO BID, #60 Ref 5 (Reported) Entered as Reported by: PRINCESS BARBER on 09/28/17457 Last Action: Converted on 09/28/17624 by PRINCESS BARBER Ropinirole Hcl (Requip) 1 Mg Tablet, 1 MG PO TID, (Reported) Entered as Reported by: PRINCESS BARBER on 09/28/17457 Last Action: Converted on 09/28/17624 by PRINCESS BARBER Warfarin Sodium (Coumadin) 5 Mg Tablet, 1 TAB PO DAILY, #90 Ref 1 (Reported) Entered as Reported by: PRINCESS BARBER on 09/28/17457 Last Action: Converted on 09/28/17624 by PRINCESS BARBER Scheduled PRN Albuterol Sulfate (Proventil Hfa Inhaler) 6.7 Gm Hfa.aer.ad, 1 PUFF IH PRN Q4HRS PRN for FOR ASTHMA, Ref 0 (Reported) Entered as Reported by: PRINCESS BARBER on 09/28/17456 Last Taken: 1-2 puffs on Unknown Date & Time Last Action: Converted on 624 by PRINCESS BARBER Hydroxyzine Hcl (Hydroxyzine Hcl) 25 Mg Tablet, 1 TAB PO TID PRN for ITCHING, # 30 (Reported) Entered as Reported by: PRINCESS BARBER on 09/28/17456 Last Action: Converted on 09/28/17624 by PRINCESS BARBER Nitroglycerin (NITROGLYCERIN SubLingual) 0.4 Mg Tab.subl, 0.4 MG SL PRN Q5MIN PRN for CHEST PAIN, (Reported) Entered as Reported by: PRINCESS BARBER on 09/28/17457 Last Action: Continued on 09/28/17624 by PRINCESS BARBER Oxycodone/Apap 5-325 (Percocet 5-325 Mg Tablet) 1 Each Tablet, 1 TAB PO PRN Q6HRS PRN for PAIN, Ref 0 (Reported) Entered as Reported by: PRINCESS BARBER on 09/28/17457 Last Action: Continued on 09/28/17624 by PRINCESS BARBER Polyethylene Glycol 3350 (Polyethylene Glycol 3350) 255 Gm Powder, 17 GM PO DAILY PRN for CONSTIPATION, #527 (Reported) Entered as Reported by: PRINCESS BARBER on 09/28/17457 Last Action: Continued on 09/28/17624 by HUNG ROJO MD Sep 29, 2017 11:42
[2017-09-29] MEDS ORDERED: IOHEXOL 240 MG/ML 50ML VIAL. PO ONE (11:45)
[2017-09-29] MEDS ORDERED: CONTRAST GIVEN. MC PRN (11:45)
[2017-09-29] MEDS ORDERED: MAG HYDROX/ALUMINUM HYD/SIMETH 30 ML ORAL.SUSP PO PRN (11:45)
--- NOTE | 2017-09-29 12:00 | PDOC ---
Renal-Progress Notes Subjective Notes Notes SOME CONSTIPATION History of Present Illness Hx of present illness STABLE Vitals Vitals Vital Signs Date Time Temp Pulse Resp B/P (MAP) Pulse Ox O2 Delivery O2 Flow Rate FiO2 09/29/17 09:26 74 131/60 09/29/17 08:00 Nasal Cannula 2.0 09/29/17 07:56 99 09/29/17 07:00 97.6 20 97.6 Weight Weight [ ] I.O. Intake and Output Intake and Output 09/29/17 07:00 Intake Total 1360 ml Balance 1360 ml Intake Oral 1360 ml # Voids 2 Labs Labs Laboratory Tests Test 09/28/17 12:06 09/28/17 16:26 09/28/17 20:21 09/29/17 02:42 Glucose (Fingerstick) 150 mg/dL (70-99) 98 mg/dL (70-99) 183 mg/dL (70-99) 100 mg/dL (70-99) Test 09/29/17 03:40 09/29/17 07:45 White Blood Count 9.6 x10^3/uL (4.0-11.0) Red Blood Count 3.02 x10^6/uL (3.50-5.40) Hemoglobin 9.8 g/dL (12.0-15.5) Hematocrit 28.4 % (36.0-47.0) Mean Corpuscular Volume 94 fL (79-100) Mean Corpuscular Hemoglobin 32 pg (25-35) Mean Corpuscular Hemoglobin Concent 34 g/dL (31-37) Red Cell Distribution Width 18.7 % (11.5-14.5) Platelet Count 198 x10^3/uL (140-400) Neutrophils (%) (Auto) 63 % (31-73) Lymphocytes (%) (Auto) 23 % (24-48) Monocytes (%) (Auto) 8 % (0-9) Eosinophils (%) (Auto) 6 % (0-3) Basophils (%) (Auto) 1 % (0-3) Neutrophils # (Auto) 6.1 x10^3uL (1.8-7.7) Lymphocytes # (Auto) 2.2 x10^3/uL (1.0-4.8) Monocytes # (Auto) 0.7 x10^3/uL (0.0-1.1) Eosinophils # (Auto) 0.5 x10^3/uL (0.0-0.7) Basophils # (Auto) 0.1 x10^3/uL (0.0-0.2) Prothrombin Time 39.8 SEC (11.7-14.0) Prothromb Time International Ratio 4.2 (0.8-1.1) Sodium Level 133 mmol/L (136-145) Potassium Level 4.6 mmol/L (3.5-5.1) Chloride Level 97 mmol/L (98-107) Carbon Dioxide Level 26 mmol/L (21-32) Anion Gap 10 (6-14) Blood Urea Nitrogen 27 mg/dL (7-20) Creatinine 5.7 mg/dL (0.6-1.0) Estimated GFR (Cockcroft-Gault) 7.4 Glucose Level 82 mg/dL (70-99) Calcium Level 8.6 mg/dL (8.5-10.1) Glucose (Fingerstick) 86 mg/dL (70-99) Review of Systems Constitutional: yes: alert, oriented Ears/Nose/Throat: Yes: no symptom reported Eyes: Yes: no symptom reported Pulmonary: Yes no symptom reported Cardiovascular: Yes no symptom reported Gastrointestional: Yes: constipation Genitourinary: Yes: no symptom reported Musculoskeletal: Yes: no symptom reported Skin: Yes no symptom reported Psychiatric/Neurological: Yes: no symptom reported Endocrine: Yes: no symptom reported Physical Exam General Appearance: no apparent distress Skin: warm Respiratory: bilateral CTA Heart: S1S2 Abdomen: soft, bowel sounds present Genitourinary: bladder flat Extremities: pulses present Neurology: alert, oriented Musculoskeletal: Weakness Assessment Assessment IMP ESRD ANEMIA DM II HTN PLAN HD TOMORROW OP OK TO D/C FROM RENAL STANDPOINT D/W ATTENDING CLIFTON CORTES MD Sep 29, 2017 12:00
[2017-09-29 15:00] VITALS: BP 89/44
--- NOTE | 2017-09-29 16:32 | RAD ---
CLINICAL HISTORY: Persistent ABD PAIN PO ONLY NO PREV . COMPARISON: none TECHNIQUE: CT of the abdomen and pelvis without intravenous contrast. Oral contrast was administered. Coronal and sagittal reformatted images were generated. PQRS compliance statement - One or more of the following individualized dose reduction techniques were utilized for this study: 1. Automated exposure control 2. Adjustment of the mA and/or kV according to patient size 3. Use of iterative reconstruction technique FINDINGS: Lack of intravenous contrast limits evaluation of solid organs, vasculature, and lymph nodes. Lower chest: Cardiomegaly with coronary artery calcifications. Dependent opacities likely atelectasis or consolidation. 5 mm left lower lobe pleural-based lung nodule seen. Kaps abdomen/pelvis: No focal liver lesion is seen. There has been a cholecystectomy. No intra or extrahepatic biliary ductal dilatation. Spleen is unremarkable. A 2.3 x 2.4 cm left adrenal nodule is seen. The right adrenal gland is normal. Pancreas is unremarkable. Lesser calcifications are seen within both renal joslyn. No definite renal calculi are seen. A 1.2 cm left lower pole hypodense renal lesion measures fluid density likely cysts. No definite right renal lesion. No hydronephrosis. The appendix is not definitively seen. No significant right lower quadrant without inflammatory change. Moderate colonic stool content. Oral contrast material seen extending to the level of the distal colon. No abnormal small or large bowel dilatation. Colonic diverticulosis without evidence of acute diverticulitis. No abdominal or pelvic ascites. Abdominal or pelvic lymphadenopathy by size criteria. Dense atherosclerotic calcifications of the aorta are seen particularly in the infrarenal aorta. Femorofemoral bypass is partially profiled. There is approximately 40 percent height loss of the T12 vertebral body, age-indeterminate. IMPRESSION: 1. Colonic diverticulosis without evidence of acute diverticulitis. 2. No evidence for bowel obstruction. 3. Dense atherosclerotic calcifications of the aorta and main branches are seen 4. Height loss of the T12 vertebral body, age indeterminate. 5. 5 mm pleural-based lung nodule in the left lower lobe. Recommend stratification appropriate follow-up. Electronically signed by: Mg Mccrary MD (09/29/2017 4:28 PM) [facility]
[2017-09-29 17:00] VITALS: BP 89/44
== END 2017-09-29 19:13 | disposition home health service (06) | DRG 640 ==
LOC: 5 SOUTH 02:32
PROVIDERS: ADMIT Internal Medicine; ATTEND Internal Medicine
PROC: 5A1D70Z Performance of Urinary Filtration, Intermittent, Less than 6 Hours Per Day (ICD-10-PCS; principal; 2017-09-28)
DX: E87.5 Hyperkalemia (principal); N18.6 End stage renal disease; I13.2 Hypertensive heart and chronic kidney disease with heart failure and with stage 5 chronic kidney disease, or end stage renal disease; E87.1 Hypo-osmolality and hyponatremia; J44.9 Chronic obstructive pulmonary disease, unspecified; K21.9 Gastro-esophageal reflux disease without esophagitis; E11.22 Type 2 diabetes mellitus with diabetic chronic kidney disease; I50.9 Heart failure, unspecified; D63.1 Anemia in chronic kidney disease; K59.00 Constipation, unspecified; E21.3 Hyperparathyroidism, unspecified; I95.9 Hypotension, unspecified; Z79.4 Long term (current) use of insulin; Z99.2 Dependence on renal dialysis; I25.2 Old myocardial infarction; Z95.1 Presence of aortocoronary bypass graft; Z95.5 Presence of coronary angioplasty implant and graft; Z82.49 Family history of ischemic heart disease and other diseases of the circulatory system; Z88.8 Allergy status to other drugs, medicaments and biological substances; Z79.01 Long term (current) use of anticoagulants; Z79.899 Other long term (current) drug therapy; Z86.73 Personal history of transient ischemic attack (TIA), and cerebral infarction without residual deficits
CPT/HCPCS: 36415; 74176; 80048; 82962; 85025; 85610; 94640; 94760; J0881; J1815; J2405; J7626